=== PATIENT | male | born 1985 ===

== ENCOUNTER 2025-03-20 08:29 | Emergency (ER) | payer MEDICAID, SELFPAY ==
[2025-03-20 08:49] VITALS: BP 150/92; PULSE 83; RESP 16; TEMP 36.4; O2SAT 97
--- NOTE | 2025-03-20 08:51 | ED.DENTAL ---
HPI - Dental/Oral General Chief complaint: Dental/Oral Stated complaint: Tooth Infection Time Seen by Provider: 03/20/25 09:18 Source: patient Mode of arrival: ambulatory Limitations: no limitations History of Present Illness HPI Narrative: 39-year-old male presents concern for anterior upper dental pain. Reports he has several teeth that he has pulled that he is working with a dentist. Reports he started having swelling and pressure at the root of tooth number 10 two days ago. He has been taking ibuprofen Complaint: tooth pain Related Data Home Medications ?Medication ?Instructions ?Recorded ?Confirmed ?Last Taken ?Type blood-glucose sensor (Dexcom G7 03/20/25 03/20/25 Unknown History Sensor device) insulin aspart U-100 100 unit/mL subcut 03/20/25 Unknown History (3 mL) subcutaneous pen insulin degludec 200 unit/mL (3 unit subcut 03/20/25 Unknown History mL) subcutaneous pen lisinopril 20 mg tablet mg 03/20/25 Unknown History pravastatin 80 mg tablet mg 03/20/25 Unknown History sildenafil 100 mg tablet mg 03/20/25 Unknown History Allergies Allergy/AdvReac Type Severity Reaction Status Date / Time No Known Allergies Allergy Verified 03/20/25 09:21 Review of Systems Review of Systems: CONSTITUTIONAL: Denies malaise, chills, sweats, or fever. EYES: Denies visual changes ENT: Denies rhinorrhea, congestion, sinus pain, otalgia or sore throat. Reports front upper dental pain CARDIOVASCULAR: Denies chest pain, palpitations RESPIRATORY: Denies cough or dyspnea. SKIN: Denies rash or itching. MUSCULOSKELETAL: Denies myalgia. NEUROLOGIC: Denies numbness, weakness, or headache. All systems reviewed & are unremarkable except as noted in HPI and below PMFSH Comments At time of signature, agree with nursing past medical, surgical, social and family history. There is no relevant family history pertinent to the presenting complaint Exam Narrative: GENERAL: Well-appearing, well-nourished, and in no acute distress. HEAD: Normocephalic, atraumatic. EYES: PERRLA, sclera clear ENT: Nares clear, turbinates pink, no rhinorrhea or epistaxis. Mucous membranes moist. TM pearly loredo with sharp light reflex bilaterally; no tragal tenderness. Oropharynx without erythema or lesions. Tonsils not enlarged and without exudate. Missing teeth, broken teeth, caries NECK: Supple. No lymphadenopathy. CHEST: No respiratory distress. Speaks in full sentences. HEART: Regular rate and rhythm. SKIN: Warm, dry, no visible rash. NEURO: Alert and oriented x3. PSYCH: Normal mood and affect Course Course Emergency Course: Patient is aware of diagnosis, understands and agrees to treatment plan. Anticipatory guidance given. Patient agrees to follow-up as directed and is aware of reasons to seek care at the emergency department. Portions of this record may have been created with voice recognition software Level of Care: [facility] Visit Vital Signs Vital signs: Vital Signs Temperature 97.5 F L 03/20/25 08:49 Pulse Rate 83 03/20/25 08:49 Respiratory Rate 16 03/20/25 08:49 Blood Pressure 150/92 H 03/20/25 08:49 Pulse Oximetry 97 03/20/25 08:49 Temperature 97.5 F L 03/20/25 08:49 Pulse Rate 83 03/20/25 08:49 Respiratory Rate 16 03/20/25 08:49 Blood Pressure 150/92 H 03/20/25 08:49 Pulse Oximetry 97 03/20/25 08:49 Reviewed. MDM - Dental/Oral MDM Narrative Medical decision making narrative: I evaluated this in the [facility]. History is obtained from patient who is an independent historian and physical exam was performed.? Available medical records were reviewed. ? Exam findings and relevant testing show no acute concerns or changes; patient is non-toxic appearing and is in no distress. Patients pain and complaint coupled with physical findings are consistant with dentalgia. There are no focal signs of space occupying lesions that are compromising to the airway; no dysphagia, odynophagia, dysphonia, or dyspnea. No uvular deviation or soft palate edema. Patient is non-toxic appearing. The floor of the mouth is soft with no signs of Mina's Angina; no induration below mandible, no neck pain. Patient is without trismus or drooling and able to swallow secretions. Patient is felt appropriate for discharge home with dental follow up. ? Differential diagnosis and treatment plan were discussed with the patient. Patient agrees with discussion and after shared medical decision making agrees with plan of care. All questions were answered to the patient's satisfaction. Patient is appropriate for outpatient treatment and follow-up. Differential Diagnosis Differential diagnosis: Likely gingival abscess, dental caries, toothache, dental abscess, fracture of tooth and aphthous ulcer Critical Care Time Critical Care Time Critical Care Time: No Discharge Plan Discharge Clinical Impression: Toothache Patient Disposition: Home Condition: Stable Instructions: Antibiotic Form, Toothache (ED) Additional Instructions: Take antibiotic as directed Avoid temperature extremes May apply heat or ice to the face Gentle brushing and flossing Take 2 extra strength Tylenol, 4 regular strength ibuprofen, 80 mg of caffeine at same time. You can do this every 6 hours. Do not do this for more than 2 - 3 days. You can substitute 25 mg Benadryl at nighttime for caffeine to help you sleep. Do this for no more than 3 days. Follow-up with the dentist as soon as possible Patient Language: Serbian Prescriptions: New clindamycin HCl 300 mg capsule 300 mg PO Q8H 7 Days Qty: 21 0RF No Action lisinopril 20 mg tablet sildenafil 100 mg tablet pravastatin 80 mg tablet insulin aspart U-100 100 unit/mL (3 mL) insulin pen SUBCUT (DME) Dexcom G7 Sensor Device MISCELLANEOUS insulin degludec 200 unit/mL (3 mL) insulin pen SUBCUT Follow-up/Referrals: PHYSICIAN,SENIOR RADIATION PROTECTION TECHNICIAN [Primary Care Provider] - Time of Disposition: 09:23
== END 2025-03-20 09:24 | disposition home or self-care (01) ==
PROVIDERS: Emergency Provider Nurse Practitioner
DX: K08.89 Other specified disorders of teeth and supporting structures (principal); Z79.4 Long term (current) use of insulin
CPT/HCPCS: 99203; G0463